=== PATIENT | female | born 1995 | race Hispanic/Latino ===

== ENCOUNTER 2021-12-07 12:22 | Emergency (ER) | payer BC, OTHER ==
[2021-12-07] MEDS ORDERED: Cyclobenzaprine 10 MG TAB ONE (13:41)
[2021-12-07] MEDS ORDERED: Ibuprofen 800 MG TAB ONE (13:41)
== END 2021-12-07 14:00 | disposition home or self-care (01) ==
LOC: MADERS 12:22
DX: S29.011A Strain of muscle and tendon of front wall of thorax, initial encounter (principal); S23.41XA Sprain of ribs, initial encounter; X50.9XXA Other and unspecified overexertion or strenuous movements or postures, initial encounter
CPT/HCPCS: 99283

== ENCOUNTER 2022-06-24 08:11 | Emergency (ER) | payer BC, OTHER ==
[2022-06-24] MEDS ORDERED: Sodium Chloride 0.9% 1,000 ML ONE (08:59)
[2022-06-24 09:08] LABS: Pregnancy Test - Urine (BHCG) POSITIVE (Negative); Pregu Control Background? CLEAR/WHITE (CLR/WHITE); Pregu Control Bar Appear? YES (CONTROL BAR); Specific Gravity 1.019 (1.002-1.036)
[2022-06-24] MEDS ORDERED: Metoclopramide HCl 10 MG/2 ML VIAL ONE (09:12)
[2022-06-24] MEDS ORDERED: diphenhydrAMINE 50 MG/ML VIAL ONE (09:12)
[2022-06-24] MEDS ORDERED: Dexamethasone 10 MG/ML VIAL ONE (09:12)
[2022-06-24] MEDS ORDERED: Ketorolac Tromethamine 30 MG/ML VIAL ONE (09:12)
== END 2022-06-24 11:07 | disposition home or self-care (01) ==
LOC: MADERS 08:11
DX: O99.350 Diseases of the nervous system complicating pregnancy, unspecified trimester (principal); G43.909 Migraine, unspecified, not intractable, without status migrainosus; Z3A.00 Weeks of gestation of pregnancy not specified
CPT/HCPCS: 70450; 81025; 96374; 96375; J1100; J1200; J1885; J2765; J7050